=== PATIENT | female | born 1990 | race Caucasian/White ===

== ENCOUNTER 2021-06-22 07:46 | Inpatient (IN) | payer OTHER, SELFPAY ==
[~2021-06-22] VITALS: Ht 175.3 cm; Wt 136.1 kg
[2021-06-22] MEDS ORDERED: PRETAB PO (07:51)
[2021-06-22] MEDS ORDERED: LACTATED RINGERS 1,000 ML IV SCH (07:55)
--- NOTE | 2021-06-22 08:36 | NUR ---
PATIENT HAS BEEN SCREENED AND CATEGORIZED LOW NUTRITION RISK. PATIENT WILL BE SEEN WITHIN 7 DAYS OF ADMISSION. 06/28/[address]
[2021-06-22 08:55] LABS: BILIRUBIN,URINE NEGATIVE (NEGATIVE); BLOOD, URINE NEGATIVE (NEGATIVE); COLOR,URINE YELLOW (YELLOW); LEUKOCYTE ESTERASE ,URINE TRACE (NEGATIVE); NITRITE, URINE NEGATIVE (NEGATIVE); UGLUCOSE NEGATIVE (NEGATIVE)
[2021-06-22 09:01] LABS: BASOPHILS % (AUTO) 0.4 % (0.0-2.0); EOSINOPHILS # (AUTO) 0.1 K/uL (0-0.4); EOSINOPHILS % (AUTO) 1.6 % (0.0-4.0); HEMATOCRIT 37.6 % (36-48); HEMOGLOBIN 13.3 g/dL (12.0-16.0); LYMPHOCYTES # (AUTO) 1.3 K/uL (2.5-16.5); LYMPHOCYTES % (AUTO) 17.4 % (20.5-51.1); MEAN CORPUSCULAR HEMOGLOBIN 31 pg (27-31); MEAN CORPUSCULAR HGB CONC 35 g/dL (33-37); MEAN CORPUSCULAR VOLUME 89.1 fL (80-94); MONOCYTES # (AUTO) 0.4 K/uL (0.8-1.0); MONOCYTES % (AUTO) 5.6 % (1.7-9.3); NEUTROPHILS # (AUTO) 5.4 K/uL (1.8-7.7); PLATELET COUNT (AUTO) 231 K/uL (140-450); RED BLOOD CELL COUNT(AUTO) 4.22 MIL/uL (4.20-5.40); RED CELL DISTRIBUTION WIDTH 13.4 % (11.6-13.7); WHITE BLOOD COUNT (AUTO) 7.2 K/uL (4.8-10.8)
[2021-06-22 09:08] LABS: ALBUMIN 2.6 g/dL (3.4-5.0); ANION GAP 13.4 (8-16); CARBON DIOXIDE 23.4 mmol/L (21-32); CREATININE 0.7 mg/dL (0.6-1.3); POTASSIUM 3.8 mmol/L (3.5-5.1); TOTAL BILIRUBIN 0.5 mg/dL (0.0-1.0)
[2021-06-22 09:08] LABS: RBC,URINE 0-5 /HPF (0-5); WBC,URINE 0-5 /HPF (0-5)
[2021-06-22 09:09] LABS: APPEARANCE,URINE SLIGHTLY HAZY (CLEAR)
[2021-06-22] MEDS ORDERED: MIDAZOLAM 2 MG/2 ML VIAL ONE (15:39)
[2021-06-22] MEDS ORDERED: MORPHINE PRES FREE 10 MG/10 ML AMP IV ONE (15:39)
[2021-06-22] MEDS ORDERED: fentaNYL citrate 0.05 MG/ML VIAL ONE (15:39)
[2021-06-22] MEDS ORDERED: oxyCODONE/APAP 5/325 MG 1 TAB TAB PO PRN (15:45)
[2021-06-22] MEDS ORDERED: KETOROLAC 30 MG/ML VIAL IVP PRN (15:45)
[2021-06-22] MEDS ORDERED: TEMAZEPAM 15 MG CAP PO PRN (15:45)
[2021-06-22] MEDS ORDERED: IBUPROFEN 800 MG TAB PO PRN (15:45)
[2021-06-22] MEDS ORDERED: METHYLERGONOVINE 0.2 MG/ML AMP IM PRN (15:45)
[2021-06-22] MEDS ORDERED: OXYTOCIN 20 UNITS in LACTATED RINGERS 1,000 ML IV SCH ×2 (15:45→16:55)
[2021-06-22] MEDS ORDERED: METHYLERGONOVINE 0.2 MG/ML AMP IM ONE (16:30)
[2021-06-22] MEDS ORDERED: diphenhydrAMINE 50 MG/ML VIAL IVP ONE (16:31)
[2021-06-22] MEDS ORDERED: OXYTOCIN 20 UNITS/LR PREMIX 1,000 ML IV ONE ×2 (16:42→23:01)
[2021-06-22] MEDS ORDERED: diphenhydrAMINE 50 MG/ML VIAL IVP PRN ×2 (16:55)
[2021-06-22] MEDS ORDERED: ONDANSETRON 4 MG/2 ML VIAL IVP PRN ×2 (16:55)
[2021-06-22] MEDS ORDERED: MEPERIDINE 25 MG/ML SYR IVP PRN (16:55)
[2021-06-22] MEDS ORDERED: fentaNYL citrate 0.05 MG/ML VIAL IVP PRN (16:55)
[2021-06-22] MEDS ORDERED: NALOXONE 0.4 MG/ML VIAL IVP PRN ×2 (16:55)
[2021-06-22] MEDS ORDERED: MISOPROSTOL 200 MCG TAB ONE (17:44)
[2021-06-22] MEDS ORDERED: MISOPROSTOL 100 MCG TAB PO PRN ×2 (17:45→17:55)
[2021-06-22] MEDS: DOCUSATE SOD/SENNA 50/8.6 MG 1 TAB PO SCH (21:00)
[2021-06-23] MEDS: KETOROLAC 30 MG/ML VIAL IM/IVP SCH ×2 (00:12→05:56)
[2021-06-23 07:33] LABS: BASOPHILS % (AUTO) 0.3 % (0.0-2.0); EOSINOPHILS % (AUTO) 0.4 % (0.0-4.0); HEMATOCRIT 29.8 % (36-48); HEMOGLOBIN 10.5 g/dL (12.0-16.0); LYMPHOCYTES # (AUTO) 1.7 K/uL (2.5-16.5); LYMPHOCYTES % (AUTO) 13.1 % (20.5-51.1); MEAN CORPUSCULAR HEMOGLOBIN 32 pg (27-31); MEAN CORPUSCULAR HGB CONC 35 g/dL (33-37); MEAN CORPUSCULAR VOLUME 90.1 fL (80-94); MONOCYTES # (AUTO) 0.9 K/uL (0.8-1.0); MONOCYTES % (AUTO) 7.2 % (1.7-9.3); NEUTROPHILS # (AUTO) 10.3 K/uL (1.8-7.7); PLATELET COUNT (AUTO) 183 K/uL (140-450); RED BLOOD CELL COUNT(AUTO) 3.31 MIL/uL (4.20-5.40)
[2021-06-23] MEDS: SIMETHICONE 80 MG TAB.CHEW PO PRN (09:05)
[2021-06-23] MEDS ORDERED: LIDOCAINE 2% 100 MG/5 ML SYR IVP ONE (15:23)
[2021-06-23] MEDS ORDERED: MIDAZOLAM 2 MG/2 ML VIAL IVP ONE (15:23)
[2021-06-23] MEDS ORDERED: ONDANSETRON 4 MG/2 ML VIAL IVP ONE (15:23)
[2021-06-23] MEDS ORDERED: BUPIVACAINE-MPF 0.75% 10 ML VIAL INJ ONE (15:23)
[2021-06-23] MEDS ORDERED: MORPHINE PRES FREE 10 MG/10 ML AMP IV ONE (15:23)
[2021-06-23] MEDS ORDERED: DEXAMETHASONE 4 MG/ML VIAL IVP ONE (15:23)
[2021-06-23] MEDS: oxyCODONE/APAP 5/325 MG 1 TAB TAB PO PRN (19:29)
[2021-06-23] MEDS: DOCUSATE SOD/SENNA 50/8.6 MG 1 TAB PO SCH (20:17)
[2021-06-23] MEDS ORDERED: CAMERA MC ONE (21:18)
[2021-06-24] MEDS: SIMETHICONE 80 MG TAB.CHEW PO PRN (09:38)
[2021-06-24] MEDS: oxyCODONE/APAP 5/325 MG 1 TAB TAB PO PRN (11:43)
[2021-06-24] MEDS ORDERED: FERR325E14 PO (13:59)
[2021-06-24] MEDS ORDERED: IBUP-2213 PO (14:00)
[2021-06-24] MEDS ORDERED: ACET-5629 PO (14:01)
== END 2021-06-24 17:10 | disposition home or self-care (01) | DRG 540 ==
LOC: MLD 07:46 → OBSVTOIN 07:51 → MFCC 19:00
PROVIDERS: ADMIT Obstetrics & Gynecology; ATTEND Obstetrics & Gynecology
PROC: 10D00Z1 Extraction of Products of Conception, Low, Open Approach (ICD-10-PCS; principal; 2021-06-22 13:30)
DX: O34.211 Maternal care for low transverse scar from previous cesarean delivery (principal); R71.0 Precipitous drop in hematocrit; Z20.822 Contact with and (suspected) exposure to COVID-19; Z3A.38 38 weeks gestation of pregnancy; Z37.0 Single live birth
CPT/HCPCS: 36415; 80053; 81001; 85025; 86592; 86886; 86900; 86901; 90715; G0378; J0690; J1100; J1200; J1885; J2001; J2210; J2250; J2270; J2405; J2590; J3010; J3490; J7060; J7120